=== PATIENT | female | born 1970 | race Caucasian/White ===

== ENCOUNTER 2018-12-15 11:33 | Emergency (ER) | payer SELFPAY ==
[~2018-12-15] VITALS: Ht 152.4 cm; Wt 55.3 kg
--- NOTE | 2018-12-15 11:45 | NUR ---
[id number], C/O "ROOM SPINNING SENSATION UPON WAKING UP AT 0900." TOOK MECLIZINE, ZOFRAN AND VALIUM CHAUFFEUR. HAS HAD MULTIPLE EPISODES OF VOMITING SINCE THIS AM, HAS NOT EATEN SINCE LAST NIGHT. APPEARS VERY WEAK AND SLIGHTLY PALE. IN GOWN, ON MONITOR, BLANKET FOR COMFORT. SON AT BEDSIDE. READY FOR EVAL.
--- NOTE | 2018-12-15 12:08 | NUR ---
MORE FAMILY AT BEDSIDE
--- NOTE | 2018-12-15 12:14 | NUR ---
DR PHILLIPS AT BEDSIDE FOR EVAL.
[2018-12-15] MEDS ORDERED: ONDANSETRON HCL/PF 4 MG/2 ML VIAL ONE (12:26)
[2018-12-15] MEDS ORDERED: MECLIZINE HCL 12.5 MG TABLET ONE (12:26)
[2018-12-15] MEDS ORDERED: MECLIZINE HCL 12.5 MG TABLET PO ONE (12:30)
[2018-12-15] MEDS ORDERED: ONDANSETRON HCL/PF 4 MG/2 ML VIAL IVP ONE (12:30)
[2018-12-15] MEDS ORDERED: IV NS 0.9% 1,000 ML BAG IV ONE (12:30)
[2018-12-15] MEDS ORDERED: LORAZEPAM INJ 2 MG/ML VIAL IV ONE (12:30)
[2018-12-15 12:35] LABS: BASOPHILS % (AUTO) 0.2 % (0.0-2.0); EOSINOPHILS % (AUTO) 0.5 % (0.0-6.0); HEMATOCRIT 41 % (33-45); HEMOGLOBIN 13.7 g/dL (11.5-14.8); LYMPHOCYTES # (AUTO) 1.1 /CMM (0.8-4.8); LYMPHOCYTES % (AUTO) 7.9 % (20.0-44.0); MEAN CORPUSCULAR HGB CONC 33 g/dl (31.0-36.0); MEAN CORPUSCULAR VOLUME 94 fL (82-100); MONOCYTES # (AUTO) 0.7 /CMM (0.1-1.30); MONOCYTES % (AUTO) 5.4 % (2.0-12.0); NEUTROPHILS # (AUTO) 11.8 /CMM (1.8-8.9); PLATELET COUNT (AUTO) 245 /CMM (150-450); RED BLOOD CELL COUNT(AUTO) 4.34 MIL/uL (4.0-5.2); WHITE BLOOD COUNT (AUTO) 13.7 K/uL (4.3-11.0)
--- NOTE | 2018-12-15 12:42 | NUR ---
PER PT MOTHER, IF PT TO BE ADMITTED, WOULD LIKE TO BE TRANSFERRED TO [place] AND PRIMARY DR CONTACTED. ANDREW NOTIFIED
[2018-12-15 12:43] LABS: CALCIUM, SERUM 8.9 mg/dL (8.5-10.1); CREATININE 0.7 mg/dL (0.6-1.3); POTASSIUM 3.9 mmol/L (3.5-5.1)
[2018-12-15] MEDS ORDERED: METOCLOPRAMIDE HCL 10 MG/2 ML VIAL ONE (13:08)
[2018-12-15] MEDS ORDERED: METOCLOPRAMIDE HCL 10 MG/2 ML VIAL IV ONE (13:30)
--- NOTE | 2018-12-15 13:32 | NUR ---
DR PHILLIPS ON PHONE WITH DR RICE, PT'S PCP
[2018-12-15 13:50] LABS: BILIRUBIN,URINE Negative (NEGATIVE); BLOOD, URINE Negative Ery/uL (NEGATIVE); COLOR,URINE Yellow (YELLOW); KETONES,URINE Negative (NEGATIVE); LEUKOCYTE ESTERASE ,URINE Negative (NEGATIVE); NITRITE, URINE Negative (NEGATIVE); PH,URINE 7.5 (5.0-8.0); PROTEIN,URINE Negative (NEGATIVE); UGLUCOSE Negative (NEGATIVE); UROBILINOGEN,URINE 0.2 EU/dL (0.2)
[2018-12-15 13:53] LABS: APPEARANCE,URINE CLEAR (CLEAR)
--- NOTE | 2018-12-15 14:13 | NUR ---
Patient discharged to home in stable condition. Written and verbal after care instructions given. Patient verbalizes understanding of instruction.IV removed. Catheter intact and site benign. Pressure and 4x4 applied to site. No bleeding noted.
[2018-12-15 14:14] VITALS: BP 130/60
== END 2018-12-15 14:19 | disposition home or self-care (01) ==
LOC: ER 11:36
DX: R42 Dizziness and giddiness (principal); R11.2 Nausea with vomiting, unspecified
CPT/HCPCS: 36415; 80048; 81001; 85025; 96361; 96374; 96375; 99283; J2405; J2765; J7030; J8597; 81000-TC